=== PATIENT | female | born 1935 | race Two or more races ===

== ENCOUNTER 2017-09-28 16:27 | Inpatient (IN) ==
[2017-09-28] MEDS ORDERED: Acetaminophen 325 MG Tablet PO PRN (22:57)
[2017-09-28] MEDS ORDERED: Dextrose 50% in Water 50 ML Vial IV.PUSH PRN (23:46)
[2017-09-29] MEDS ORDERED: Vancomycin Inj 1 GM/200 ML PIGGYBACK IV.SIG ONE (01:00)
[2017-09-29] MEDS: Piperacil/Tazo 3.375 GM Premix 50 ML IV.SIG SCH ×6 (01:29→18:01)
[2017-09-29] MEDS: Insulin NovoLOG Aspart Correctional Sugar Inj SQ SCH ×4 (08:35→21:05)
--- NOTE | 2017-09-29 08:48 | P.HPIM ---
History of Present Illness Primary Care Physician: UNKNOWN Chief Complaint: left ear pain History of Present Illness: patient is a 82 y/o female with history of hypertension and diabetes who presented to ER with left ear pain. patient is malagasy-speaking and interpreter translator service was utilized. the patient is not a good historian but she says that she' s had left earache for quite a while. she says that she's quite dizzy and she feels fatigued. she doesn't report any fever, chills or recent falls. - Diagnosis (1) Mastoiditis (2) Diabetes mellitus (3) Hypertension (4) CVA (cerebral vascular accident) Inpatient Certification: I certify that the inpatient services were ordered in accordance with Medicare regulations governing the order. 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 - Tobacco History Second Hand Smoke Exposure: No Tobacco Use In Past 30 Days: No Smoking Status: Former smoker - Alcohol History How Often Do You Have a Drink Containing Alcohol: Never - Substance Use History Substance History: No History of Abuse - Travel History Recent Travel in the [place] Within the Last 8 Weeks: No Recent Travel Out of the Country Within the Last 8 Weeks: No - Immunization History Tetanus Immunization: Never Vaccinated Hx Influenza Vaccine This Season: No Medications and Allergies Active Medications: Active Medications Acetaminophen (Tylenol) 650 mg PO Q6H PRN PRN Reason: FEVER/ACUTE PAIN Dextrose (D50w Vial) 50 ml IV.PUSH UNSCH PRN PRN Reason: PER HYPOGLYCEMIA PROTOCOL Glucagon (Glucagon Inj) 1 mg OTHER PRN PRN PRN Reason: for Hypoglycemia Protocol Piperacillin/Tazobactam/Dextrose (Zosyn 3.375 Gm Premix) 50 mls @ 100 mls/hr IV.SIG Q6H [facility] Last Admin: 09/29/17 05:55 Dose: Not Given Insulin Aspart (Novolog Insulin Suppl Scale Inj) 1 unit SQ [facility]; Protocol Last Admin: 09/29/17 08:35 Dose: Not Given Allergies Allergy/AdvReac Type Severity Reaction Status Date / Time furosemide [From Lasix] Allergy Mild Rash, Verified 09/28/17 23:31 Generalized diatrizoate meglumine Allergy Unknown Itching, Verified 09/28/17 23:28 Generalized Home Medications Medication Instructions Recorded Confirmed Type amlodipine 10 mg PO DAILY 09/28/17 09/28/17 History brimonidine [Alphagan P] 1 drp OPHTHALMIC (EYE) TID 09/28/17 09/28/17 History clopidogrel 75 mg PO DAILY 09/28/17 09/28/17 History dexlansoprazole [Dexilant] 60 mg PO DAILY PRN MDD 60 mg 09/28/17 09/28/17 History ezetimibe [Zetia] 10 mg PO DAILY 09/28/17 09/28/17 History glimepiride 4 mg PO QAM 09/28/17 09/28/17 History losartan-hydrochlorothiazide 1 tab PO DAILY 09/28/17 09/28/17 History meclizine 12.5 mg PO BID MDD 25 mg 09/28/17 09/28/17 History montelukast 10 mg PO QPM 09/28/17 09/28/17 History sitagliptin [Januvia] 50 mg PO DAILY 09/28/17 09/28/17 History travoprost [Travatan Z] 1 drp OPHTHALMIC (EYE) QPM 09/28/17 09/28/17 History Exam Vital signs: Vital Signs 09/28/17 23:11 09/29/17 00:37 Temperature 97.4 F L 97.0 F L Pulse Rate 72 63 Respiratory Rate 20 20 Blood Pressure 140/63 138/67 Pulse Oximetry 92 L 93 L Intake & Output 09/28/17 09/29/17 09/29/17 18:59 06:59 18:59 Intake Total 500 / 500 Output Total 400 / 400 Balance 100 / 100 Weight 76 kg Intake: IV 300 / 300 Zosyn 3.375 GM Premix 50 ML @ 100 / 100 100 mls/hr IV.SIG Q6H [facility] Rx#: [id number] Vancomycin Inj 1 gm In 200 ml @ 200 / 200 200 mls/hr IV.SIG ONCE ONE Rx# :[id number] Oral 200 / 200 Output: Urine 400 / 400 Other: Weight On Admission 76 kg - Constitutional no acute distress - Routine Neck Exam Present: supple, full ROM - Routine Respiratory Exam Present: CTA bilaterally - Routine Cardiovascular Exam Present: RRR - Routine Abdominal Exam Present: soft - Routine Extremities Exam Comments: no pedal edema. - Routine Neurological Exam Present: alert Caprini VTE Risk Assessment Caprini VTE Risk Assessment: Moderate/High Risk (score >= 2) Caprini Risk Assessment Model: Point Value = 1 Point Value = 2 Point Value = 3 Point Value = 5 Age 41-60 Minor surgery BMI > 25 kg/m2 Swollen legs Varicose veins or History of unexplained or recurrent spontaneous Oral contraceptives or hormone replacement Sepsis (< 1 month) Serious lung disease, including pneumonia (< 1 month) Abnormal pulmonary function Acute myocardial infarction Congestive heart failure (< 1 month) History of inflammatory bowel disease Medical patient at bed rest Age 61-74 Arthroscopic surgery Major open surgery (> 45 min) Laparoscopic surgery (> 45 min) Malignancy Confined to bed (> 72 hours) Immobilizing plaster cast Central venous access Age >= 75 History of VTE Family history of VTE Factor V Leiden Prothrombin [id number] Lupus anticoagulant Anticardiolipin antibodies Elevated serum homocysteine Heparin-induced thrombocytopenia Other congenital or acquired thrombophilia Stroke (< 1 month) Elective arthroplasty Hip, pelvis, or leg fracture Acute spinal cord injury (< 1 month) Prophylaxis Regimen: Total Risk Factor Score Risk Level Prophylaxis Regimen 0-1 Low Early ambulation 2 Moderate Order ONE of the following: *Sequential Compression Device (SCD) *Heparin 5000 units SQ BID 3-4 Higher Order ONE of the following medications: *Heparin 5000 units SQ TID *Enoxaparin/Lovenox 40 mg SQ daily (WT < 150 kg, CrCl > 30 mL/min) *Enoxaparin/Lovenox 30 mg SQ daily (WT < 150 kg, CrCl > 10-29 mL/min) *Enoxaparin/Lovenox 30 mg SQ BID (WT < 150 kg, CrCl > 30 mL/min) AND/OR *Sequential Compression Device (SCD) 5 or more Highest Order ONE of the following medications: *Heparin 5000 units SQ TID (Preferred with Epidurals) *Enoxaparin/Lovenox 40 mg SQ daily (WT < 150 kg, CrCl > 30 mL/min) *Enoxaparin/Lovenox 30 mg SQ daily (WT < 150 kg, CrCl > 10-29 mL/min) *Enoxaparin/Lovenox 30 mg SQ BID (WT < 150 kg, CrCl > 30 mL/min) AND *Sequential Compression Device (SCD) Assessment and Plan - Assessment (1) Mastoiditis Code(s): H70.90 - Unspecified mastoiditis, unspecified ear Status: Acute Plan: continue with broad spectrum IV antibiotics- consult ENT- continue pain control. (2) Diabetes mellitus Code(s): E11.9 - Type 2 diabetes mellitus without complications Status: Acute Plan: started on accu-check with SSI. (3) Hypertension Code(s): I10 - Essential (primary) hypertension Status: Acute Plan: resume home meds. (4) CVA (cerebral vascular accident) Code(s): I63.9 - Cerebral infarction, unspecified Status: Chronic Plan: continue plavix . consult PT. - Plan DVT prophylaxis with sub q Lovenox. Discussed Condition With: ER physician and the patient. the RN. Discharge Planning: pending w/u and clinical course. H&P: Quality - VTE Deep Vein Thrombosis/Pulmonary Embolism Present on Admission: No (1) Mastoiditis Qualifiers: Laterality: left Qualified Code(s): H70.92 - Unspecified mastoiditis, left ear (2) Diabetes mellitus Qualifiers: Diabetes mellitus type: type 2
[2017-09-29] MEDS ORDERED: Non-Formulary Drug (Losartan-Hydrochlorothiazide [Losartan-Hydrochlorothiazide] 1 TAB) PO SCH (09:00)
[2017-09-29] MEDS ORDERED: BRIMONIDINE EACH EYE SCH (09:00)
[2017-09-29] MEDS ORDERED: Vancomycin Consult Pharmacy 1 EACH OTHER SCH (10:00)
[2017-09-29] MEDS: amLODIPine 10 MG Tablet PO SCH (10:39)
[2017-09-29] MEDS: Ezetimibe 10 MG Tablet PO SCH (10:40)
[2017-09-29] MEDS: Enoxaparin Inj 40 MG/0.4 ML Syringe SQ SCH (10:40)
[2017-09-29] MEDS: Brimonidine 0.15% Opth Drops 5 ML Bottle EACH EYE SCH ×2 (16:09→18:41)
--- NOTE | 2017-09-29 16:33 | P.CON ---
History of Present Illness Service: ENT Consult date: 09/29/17 Reason for Consult: Left otalgia Primary Care Provider: UNKNOWN Chief Complaint: left ear pain History of Present Illness: 82 year old female admitted with several days left ear pain. ENT consult obtained for mastoiditis. Patient is a diabetic. Agnes has been on IV meds. She is quite comfortable in bed now. Is not tender. 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 - Tobacco History Second Hand Smoke Exposure: No Tobacco Use In Past 30 Days: No Smoking Status: Former smoker - Alcohol History How Often Do You Have a Drink Containing Alcohol: Never - Substance Use History Substance History: No History of Abuse - Travel History Recent Travel in the [facility] Within the Last 8 Weeks: No Recent Travel Out of the Country Within the Last 8 Weeks: No - Immunization History Tetanus Immunization: Never Vaccinated Hx Influenza Vaccine This Season: No Medications and Allergies Active Medications: Active Medications Acetaminophen (Tylenol) 650 mg PO Q6H PRN PRN Reason: FEVER/ACUTE PAIN Amlodipine Besylate (Norvasc) 10 mg PO DAILY [facility] Last Admin: 09/29/17 10:39 Dose: 10 mg Brimonidine Tartrate (Alphagan P 0.15% Opth Drops) 1 drops EACH EYE TID [facility] Last Admin: 09/29/17 16:09 Dose: Not Given Clopidogrel Bisulfate (Plavix) 75 mg PO DAILY [facility] Last Admin: 09/29/17 10:39 Dose: 75 mg Dextrose (D50w Vial) 50 ml IV.PUSH UNSCH PRN PRN Reason: PER HYPOGLYCEMIA PROTOCOL Ezetimibe (Zetia) 10 mg PO DAILY [facility] Last Admin: 09/29/17 10:40 Dose: 10 mg Enoxaparin Sodium (Lovenox Inj) 40 mg SQ DAILY [facility] Last Admin: 09/29/17 10:40 Dose: 40 mg Glucagon (Glucagon Inj) 1 mg OTHER PRN PRN PRN Reason: for Hypoglycemia Protocol Piperacillin/Tazobactam/Dextrose (Zosyn 3.375 Gm Premix) 50 mls @ 100 mls/hr IV.SIG Q6H [facility] Last Infusion: 09/29/17 13:19 Dose: Infused Pharmacy Profile Note (Vancomycin Consult Pharmacy) 0 mls @ 0 mls/hr OTHER UNSCH [facility] Vancomycin/Sodium Chloride (Vancomycin Inj) 1 gm in 200 mls @ 200 mls/hr IV.SIG Q24H [facility] Insulin Aspart (Novolog Insulin Suppl Scale Inj) 1 unit SQ ACHS [facility]; Protocol Last Admin: 09/29/17 12:59 Dose: 1 unit Latanoprost (Xalatan 0.005% Opth Drops) 1 drop EACH EYE QPM [facility] Losartan Potassium (Cozaar) 50 mg PO DAILY [facility] Meclizine HCl (Antivert) 25 mg PO Q8H PRN PRN Reason: dizziness Miscellaneous Information ([facility] Ordered Lab Info) 0 each OTHER ONCE ONE Stop: 10/02/17 00:46 Montelukast Sodium (Singulair) 10 mg PO QPM [facility] Pantoprazole Sodium (Protonix) 40 mg PO DAILY PRN PRN Reason: ACID REFLUX Allergies Allergy/AdvReac Type Severity Reaction Status Date / Time furosemide [From Lasix] Allergy Mild Rash, Verified 09/28/17 23:31 Generalized diatrizoate meglumine Allergy Unknown Itching, Verified 09/28/17 23:28 Generalized Home Medications Medication Instructions Recorded Confirmed Type amlodipine 10 mg PO DAILY 09/28/17 09/28/17 History brimonidine [Alphagan P] 1 drp OPHTHALMIC (EYE) TID 09/28/17 09/28/17 History clopidogrel 75 mg PO DAILY 09/28/17 09/28/17 History dexlansoprazole [Dexilant] 60 mg PO DAILY PRN MDD 60 mg 09/28/17 09/28/17 History ezetimibe [Zetia] 10 mg PO DAILY 09/28/17 09/28/17 History glimepiride 4 mg PO QAM 09/28/17 09/28/17 History losartan-hydrochlorothiazide 1 tab PO DAILY 09/28/17 09/28/17 History meclizine 12.5 mg PO BID MDD 25 mg 09/28/17 09/28/17 History montelukast 10 mg PO QPM 09/28/17 09/28/17 History sitagliptin [Januvia] 50 mg PO DAILY 09/28/17 09/28/17 History travoprost [Travatan Z] 1 drp OPHTHALMIC (EYE) QPM 09/28/17 09/28/17 History Physical Exam Vital signs: Vital Signs 09/28/17 23:11 09/29/17 00:37 09/29/17 08:00 Temperature 97.4 F L 97.0 F L 96.8 F L Pulse Rate 72 63 66 Respiratory Rate 20 20 17 Blood Pressure 140/63 138/67 159/67 H Pulse Oximetry 92 L 93 L 97 09/29/17 12:00 Temperature 96.3 F L Pulse Rate 59 L Respiratory Rate 17 Blood Pressure 153/66 H Pulse Oximetry 94 L Intake & Output 09/28/17 09/29/17 09/29/17 18:59 06:59 18:59 Intake Total 500 / 500 50 / 50 Output Total 400 / 400 400 / 400 Balance 100 / 100 -350 / -350 Weight 76 kg Intake: IV 300 / 300 50 / 50 Zosyn 3.375 GM Premix 50 ML @ 100 / 100 50 / 50 100 mls/hr IV.SIG Q6H [facility] Rx#: [id number] Vancomycin Inj 1 gm In 200 ml @ 200 / 200 200 mls/hr IV.SIG ONCE ONE Rx# :[id number] Oral 200 / 200 Output: Urine 400 / 400 400 / 400 Other: Weight On Admission 76 kg - Constitutional no acute distress, obese, cooperative - Routine HEENT Exam Head: Present: normocephalic, atraumatic Eye: Present: EOMI ENT: Present: mucous membranes moist, oropharynx clear, nares patent, external ear normal. Absent: sinus tenderness - Routine Neck Exam Present: supple, full ROM, trachea midline Assessment and Plan - Plan ENT called for mastoiditis. There is no mastoid swelling. The patient is non- tender. The facial nerve is intact. The ear canal appears clear with a small amount of ceruminous debris. The visible TM shows only slight retraction. Would discharge home, there is no mastoiditis and the facial nerve intact. Outpatient follow up with ENT to clear the ear under the microsope in office setting.
[2017-09-29] MEDS: Latanoprost 0.005% Opth Drops 2.5 ML Bottle EACH EYE SCH (18:01)
[2017-09-29] MEDS: Montelukast 10 MG Tablet PO SCH (18:21)
[2017-09-30] MEDS: Piperacil/Tazo 3.375 GM Premix 50 ML IV.SIG SCH ×2 (00:01→06:18)
[2017-09-30] MEDS ORDERED: Vancomycin Inj 1 GM/200 ML PIGGYBACK IV.SIG SCH (01:00)
[2017-09-30 05:54] LABS: Hematocrit 46.3 % (35.0-46.0); Hemoglobin 15.5 gm/dL (11.6-15.3); Mean Corpuscular HGB Conc 33.5 % (32.0-36.0); Mean Corpuscular Hemoglobin 29.6 pg (27.0-34.0); Mean Corpuscular Volume 88.4 fL (80.0-100.0); Platelet Count 240 th/mm3 (150-450); Red Blood Count 5.24 mil/mm3 (4.00-5.30); Red Cell Distribution Width 12.9 % (11.6-17.2)
[2017-09-30 06:06] LABS: Calcium 8.9 mg/dL (8.5-10.1)
[2017-09-30 06:07] LABS: Carbon Dioxide 26.8 meq/L (21.0-32.0)
[2017-09-30] MEDS: amLODIPine 10 MG Tablet PO SCH (08:31)
[2017-09-30] MEDS: Enoxaparin Inj 40 MG/0.4 ML Syringe SQ SCH (08:32)
[2017-09-30] MEDS: Brimonidine 0.15% Opth Drops 5 ML Bottle EACH EYE SCH ×3 (08:34→18:05)
[2017-09-30] MEDS: Insulin NovoLOG Aspart Correctional Sugar Inj SQ SCH ×3 (08:35→17:36)
[2017-09-30] MEDS: Ezetimibe 10 MG Tablet PO SCH (08:36)
--- NOTE | 2017-09-30 09:49 | P.PN ---
Subjective Interval history: in no acute distress. looks comfortable. no fever. Physical Exam Vital signs: Vital Signs 09/29/17 12:00 09/29/17 16:00 09/29/17 20:00 Temperature 96.3 F L 97.4 F L 96.7 F L Pulse Rate 59 L 59 L 55 L Respiratory Rate 17 17 20 Blood Pressure 153/66 H 153/72 H 148/66 H Pulse Oximetry 94 L 96 97 09/30/17 00:00 Temperature 97.5 F L Pulse Rate 60 Respiratory Rate 18 Blood Pressure 135/60 Pulse Oximetry 96 Intake & Output 09/29/17 09/30/17 09/30/17 18:59 06:59 18:59 Intake Total 820 / 820 50 / 50 50 / 50 Output Total 600 / 600 950 / 950 Balance 220 / 220 -900 / -900 50 / 50 Weight 75 kg Intake: IV 100 / 100 50 / 50 50 / 50 Zosyn 3.375 GM Premix 50 ML @ 100 / 100 50 / 50 50 / 50 100 mls/hr IV.SIG Q6H [facility] Rx#: [id number] Oral 720 / 720 Output: Urine 600 / 600 950 / 950 Other: # Voids 4 Date of Last Bowel Movement 09/30/17 # Bowel Movements 0 1 - Constitutional no acute distress - Routine HEENT Exam Head: Present: normocephalic Comments: no tenderness- left ear. - Routine Respiratory Exam Present: CTA bilaterally - Routine Cardiovascular Exam Present: RRR - Routine Abdominal Exam Present: soft - Routine Neurological Exam Present: alert Results - Labs CBC & Chem 7: 09/30/17 05:35 09/30/17 05:35 Laboratory Results - last 24 hr 09/29/17 09/29/17 09/29/17 10:45 12:18 16:12 WBC RBC Hgb Hct MCV MCH MCHC RDW Plt Count MPV Sodium Potassium Chloride Carbon Dioxide Anion Gap BUN Creatinine 0.86 Estimated GFR 63 L POC Glucose 232 H 195 H Random Glucose Calcium 09/29/17 09/30/17 09/30/17 21:04 05:35 05:35 WBC 7.0 RBC 5.24 Hgb 15.5 H Hct 46.3 H MCV 88.4 MCH 29.6 MCHC 33.5 RDW 12.9 Plt Count 240 MPV 8.0 Sodium 139 Potassium 3.0 L Chloride 104 Carbon Dioxide 26.8 Anion Gap 8 BUN 14 Creatinine 0.79 Estimated GFR 70 L POC Glucose 113 H Random Glucose 136 H Calcium 8.9 09/30/17 07:43 WBC RBC Hgb Hct MCV MCH MCHC RDW Plt Count MPV Sodium Potassium Chloride Carbon Dioxide Anion Gap BUN Creatinine Estimated GFR POC Glucose 128 H Random Glucose Calcium Assessment and Plan - Assessment (1) Mastoiditis Code(s): H70.90 - Unspecified mastoiditis, unspecified ear Status: Acute Plan: ENT consult appreciated; recommended that the patient be discharged home with outpatient f/u. (2) Diabetes mellitus Code(s): E11.9 - Type 2 diabetes mellitus without complications Status: Acute Plan: started on accu-check with SSI. (3) Hypertension Code(s): I10 - Essential (primary) hypertension Status: Acute Plan: resumed home meds. (4) CVA (cerebral vascular accident) Code(s): I63.9 - Cerebral infarction, unspecified Status: Chronic Plan: continue plavix . consulted PT. (5) Hypokalemia Code(s): E87.6 - Hypokalemia Status: Acute Plan: will replace and monitor. - Plan DVT prophylaxis with sub q Lovenox. Discharge Planning: possible discharge today- pending PT evaluation today. f/u; pcp and ENT. (1) Mastoiditis Qualifiers: Laterality: left Qualified Code(s): H70.92 - Unspecified mastoiditis, left ear (2) Diabetes mellitus Qualifiers: Diabetes mellitus type: type 2
[2017-09-30] MEDS: Montelukast 10 MG Tablet PO SCH (18:06)
[2017-09-30] MEDS: Latanoprost 0.005% Opth Drops 2.5 ML Bottle EACH EYE SCH (18:06)
[2017-10-02] MEDS ORDERED: VANCOMYCIN TROUGH OTHER ONE (00:45)
== END 2017-09-30 18:57 | disposition home or self-care (01) ==
LOC: PHEDDLT 16:27 → PHEDA 22:17 → PH3 22:34
PROVIDERS: ADMIT Internal Medicine; ATTEND Internal Medicine